=== PATIENT | male | born 1985 | race Caucasian/White ===

== ENCOUNTER 2018-03-28 08:41 | Emergency (ER) | payer MEDICAID ==
[2018-03-28] MEDS ORDERED: IBUPROFEN 600 MG TAB PO (09:00)
[2018-03-28] MEDS: KETOROLAC 30 MG INJ IM (09:04)
[2018-03-28] MEDS: HYDROCODONE/APAP (5/325) TAB PO (09:05)
== END 2018-03-28 10:13 | disposition home or self-care (01) ==
LOC: FTE 08:41
DX: M54.42 Lumbago with sciatica, left side (principal); F17.210 Nicotine dependence, cigarettes, uncomplicated
CPT/HCPCS: 72100; 96372; 99284-25